=== PATIENT | male | born 1975 | race Caucasian/White ===

== ENCOUNTER 2017-01-30 13:07 | Inpatient (IN) | payer OTHER, BC ==
[~2017-01-30] VITALS: Ht 190.5 cm; Wt 102.0 kg
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
[2017-01-30 13:35] LABS: BASOPHIL # 0.2 K/uL (0.0-0.2); BASOPHIL % 1.3 %; EOSINOPHIL # 0.1 K/uL (0.0-0.5); EOSINOPHIL % 0.8 %; HEMATOCRIT 44.9 % (37.0-53.0); HEMOGLOBIN 15.9 g/dL (12.0-17.0); IMMATURE GRANULOCYTE # 0.6 K/uL (0.0-0.3); IMMATURE GRANULOCYTE % 4.4 %; LYMPHOCYTE # 3.4 K/uL (0.8-4.0); LYMPHOCYTE % 23.8 %; MCH 29.6 pg (27.0-34.0); MCHC 35.4 gm/dL (32.0-36.5); MCV 83.5 fl (83.0-98.0); MONOCYTE # 1.1 K/uL (0.0-1.0); MONOCYTE % 7.7 %; MPV 10.7 fl (9.4-12.4); NEUTROPHIL # (ANC) 8.8 K/uL (1.4-9.0); NRBC % 0 /100WBC (0-0.00); PLATELET COUNT 360 K/uL (150-450); RBC 5.38 M/uL (4.00-6.00); RDW-CV 13.4 % (11.9-14.6); WBC 14.1 K/uL (4.0-11.0)
[2017-01-30 13:48] LABS: INR - (THERAPEUTIC) 1.03 (0.92-1.07); PROTIME 10.8 SECONDS (9.8-11.4); PTT 21 SECONDS (25-32)
[2017-01-30 13:50] LABS: ALBUMIN 3.6 gm/dL (3.5-5.0); BLOOD UREA NITROGEN 15 mg/dL (6-24); CALCIUM 8.5 mg/dL (8.5-10.5); CHLORIDE 107 mMol/L (96-110); CO2 27 mMol/L (22-32); CREATININE 0.9 mg/dL (0.6-1.3); ESTIMATED GFR (MDRD EQUATION) > 60; PHOSPHORUS 2.4 mg/dL (2.5-4.9); SODIUM 144 mMol/L (135-145)
[2017-01-30 13:51] LABS: ANION GAP 12.6 (10.0-19.0); POTASSIUM 2.6 mMol/L (3.7-5.1)
[2017-01-30 17:22] LABS: BASOPHIL # 0.1 K/uL (0.0-0.2); BASOPHIL % 0.4 %; EOSINOPHIL % 0.1 %; HEMATOCRIT 44.4 % (37.0-53.0); HEMOGLOBIN 15.8 g/dL (12.0-17.0); IMMATURE GRANULOCYTE # 0.4 K/uL (0.0-0.3); IMMATURE GRANULOCYTE % 2.3 %; LYMPHOCYTE # 0.8 K/uL (0.8-4.0); LYMPHOCYTE % 4.3 %; MCHC 35.6 gm/dL (32.0-36.5); MCV 84.3 fl (83.0-98.0); MONOCYTE # 1.1 K/uL (0.0-1.0); MPV 10.9 fl (9.4-12.4); NEUTROPHIL # (ANC) 16.4 K/uL (1.4-9.0); NEUTROPHIL % 86.9 %; NRBC % 0 /100WBC (0-0.00); RBC 5.27 M/uL (4.00-6.00); RDW-CV 13.3 % (11.9-14.6)
[2017-01-30 17:24] LABS: PLATELET COUNT 255 K/uL (150-450); WBC 18.9 K/uL (4.0-11.0)
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
[2017-01-30 17:35] LABS: ANION GAP 12.4 (10.0-19.0); BLOOD UREA NITROGEN 13 mg/dL (6-24); CALCIUM 8.4 mg/dL (8.5-10.5); CHLORIDE 105 mMol/L (96-110); CO2 28 mMol/L (22-32); CREATININE 0.9 mg/dL (0.6-1.3); ESTIMATED GFR (MDRD EQUATION) > 60; POTASSIUM 3.4 mMol/L (3.7-5.1); SODIUM 142 mMol/L (135-145)
[2017-01-30] MEDS ORDERED: BENADRYL25 MG PO (18:39)
[2017-01-30] MEDS ORDERED: AMOXICILLIN500 MG PO (18:39)
[2017-01-30] MEDS ORDERED: ADVIL200 MG PO (18:40)
[2017-01-30] MEDS ORDERED: DELTASONE20 MG PO (18:41)
--- NOTE | 2017-01-31 05:33 | NUR ---
Significant Event: Pt oriented x3. Follows commands, spontaneous movments x4. Conversates appropriately. C/o of frontal headache, given Tylenol and Fentanyl for pain control. Emesis x2 tonight, r/t to head movements. Bleeding from R)ear. Acute hearing loss to L)ear, pt states is slightly better. PIV x1. No scott, voids adquately per urinal. Follow up:
[2017-01-31 05:35] LABS: HEMATOCRIT 43.2 % (37.0-53.0); HEMOGLOBIN 15.1 g/dL (12.0-17.0); MCH 29.5 pg (27.0-34.0); MCV 84.5 fl (83.0-98.0); PLATELET COUNT 268 K/uL (150-450); RBC 5.11 M/uL (4.00-6.00); RDW-CV 13.6 % (11.9-14.6); WBC 15.8 K/uL (4.0-11.0)
[2017-01-31 05:48] LABS: ANION GAP 13.3 (10.0-19.0); BLOOD UREA NITROGEN 15 mg/dL (6-24); CALCIUM 8.6 mg/dL (8.5-10.5); CHLORIDE 105 mMol/L (96-110); CO2 27 mMol/L (22-32); CREATININE 0.8 mg/dL (0.6-1.3); ESTIMATED GFR (MDRD EQUATION) > 60; POTASSIUM 3.3 mMol/L (3.7-5.1); SODIUM 142 mMol/L (135-145)
[2017-01-31 06:11] LABS: ABSOLUTE NEUTROPHIL CT (ANC) 14.2 K/uL (1.4-9.0); BANDED NEUTROPHIL # 0.2 K/uL (0.0-0.1); BANDED NEUTROPHILS % 1 %; LYMPHOCYTE # 0.9 K/uL (0.8-4.0); LYMPHOCYTE % 6 %; MONOCYTE # 0.6 K/uL (0.0-1.0); SEGMENTED NEUTROPHIL # 14.1 K/uL (1.4-9.0); SEGMENTED NEUTROPHIL % 89 %
--- NOTE | 2017-01-31 13:15 | NUR ---
Introduced self and role of care management to patient. Patient lives alone in [place], [place]. He syas he has insurance and admission got the information earlier today. His brother is here and lives in [place] too. He plans home when feeling better and able to travel. Will follow.
--- NOTE | 2017-01-31 17:22 | NUR ---
Significant Event: Patient is A&O X3, follows all commands. Pupils are equal and reactive. Equal strength bilateral in upper and lower extremities. Patient gets dizzy and nauseated with head movement. SBP have been 120's-140's, MAP's 90's-low 100's. HR have been 60's-70's. Patient is on RA with o2 sats low to mid 90's. Lung sounds are clear. Patient is a one assist to the chair. Follow up:
[2017-02-01 06:00] LABS: BASOPHIL % 0.2 %; HEMATOCRIT 40.5 % (37.0-53.0); IMMATURE GRANULOCYTE # 0.2 K/uL (0.0-0.3); IMMATURE GRANULOCYTE % 1.1 %; LYMPHOCYTE # 0.7 K/uL (0.8-4.0); LYMPHOCYTE % 3.1 %; MCH 30.2 pg (27.0-34.0); MCHC 34.6 gm/dL (32.0-36.5); MCV 87.3 fl (83.0-98.0); MONOCYTE # 1.4 K/uL (0.0-1.0); MONOCYTE % 6.6 %; MPV 11.4 fl (9.4-12.4); NEUTROPHIL # (ANC) 18.6 K/uL (1.4-9.0); NRBC % 0 /100WBC (0-0.00); PLATELET COUNT 237 K/uL (150-450); RBC 4.64 M/uL (4.00-6.00); RDW-CV 14.1 % (11.9-14.6)
[2017-02-01 06:02] LABS: WBC 20.9 K/uL (4.0-11.0)
[2017-02-01 06:07] LABS: ANION GAP 12.3 (10.0-19.0); BLOOD UREA NITROGEN 20 mg/dL (6-24); CALCIUM 8.5 mg/dL (8.5-10.5); CHLORIDE 107 mMol/L (96-110); CO2 28 mMol/L (22-32); CREATININE 0.8 mg/dL (0.6-1.3); ESTIMATED GFR (MDRD EQUATION) > 60; POTASSIUM 3.3 mMol/L (3.7-5.1); SODIUM 144 mMol/L (135-145)
--- NOTE | 2017-02-01 06:39 | NUR ---
Significant Event: PATIENT ALERT/ORIENTED. COMPLAINT OF FRONTAL HEADACHE, SOME RELIEF NOTED WITH PRN FENTANYL AND TYLENOL. COMPLAINT OF INSOMNIA, BENADRYL GIVEN. AFEBRILE. NPO EXCEPT FOR MINIMAL SIPS. VOIDING PER URINAL. PIV TO RIGHT POST FOREARM NS AT 100ML/HR. SHOWERED THIS SHIFT. Follow up:TRANSFER
--- NOTE | 2017-02-01 14:38 | NUR ---
Significant Event: Alert and oriented x3. Pain to head and stiffness, Fentanyl given. Nausea zofran given. PT/OT consulted, ambulated in [place]za. Voids per urinal/bathroom. IV to R) forearm infusing fluids at 75 ml/hr. Regular diet. NTU status. Up to chair today. Follow up: transfer to NTU.
--- NOTE | 2017-02-02 02:21 | NUR ---
Significant Event: Patient transferred from ICU to NTU at 2130. Patient is alert/oriented x 3. Denies N/T. Moves all extremities spontaneously and to command with equal strength throughout. Lungs clear and dim on room air. VSS. Pain to lower back and frontal lobe. Fentanyl and Tylenol last given at 0015, relief noted. KPAD to back. IV to right forearm saline locked running D5 1/2 NS at 75 ml/hr. Follow up: Going home today?
[2017-02-02 04:57] LABS: BASOPHIL # 0.1 K/uL (0.0-0.2); BASOPHIL % 0.3 %; EOSINOPHIL % 0.2 %; HEMATOCRIT 37.2 % (37.0-53.0); HEMOGLOBIN 12.7 g/dL (12.0-17.0); IMMATURE GRANULOCYTE # 0.2 K/uL (0.0-0.3); IMMATURE GRANULOCYTE % 0.9 %; LYMPHOCYTE # 0.7 K/uL (0.8-4.0); LYMPHOCYTE % 4.3 %; MCH 29.4 pg (27.0-34.0); MCHC 34.1 gm/dL (32.0-36.5); MCV 86.1 fl (83.0-98.0); MONOCYTE # 1.2 K/uL (0.0-1.0); MONOCYTE % 7.4 %; MPV 10.9 fl (9.4-12.4); NEUTROPHIL # (ANC) 13.9 K/uL (1.4-9.0); NEUTROPHIL % 86.9 %; NRBC % 0 /100WBC (0-0.00); RBC 4.32 M/uL (4.00-6.00); RDW-CV 14.1 % (11.9-14.6)
[2017-02-02 05:02] LABS: PLATELET COUNT 184 K/uL (150-450); WBC 16.1 K/uL (4.0-11.0)
[2017-02-02 05:16] LABS: ANION GAP 9.5 (10.0-19.0); BLOOD UREA NITROGEN 16 mg/dL (6-24); CALCIUM 8.4 mg/dL (8.5-10.5); CHLORIDE 106 mMol/L (96-110); CO2 28 mMol/L (22-32); CREATININE 0.7 mg/dL (0.6-1.3); ESTIMATED GFR (MDRD EQUATION) > 60; POTASSIUM 3.5 mMol/L (3.7-5.1); SODIUM 140 mMol/L (135-145)
[2017-02-02] MEDS ORDERED: ROXICODONE 5MG (5 MG PO (10:30)
[2017-02-02] MEDS ORDERED: ZOFRAN4 MG PO (10:31)
[2017-02-02] MEDS ORDERED: MECLIZINE HCL25 M1 PO (10:32)
--- NOTE | 2017-02-02 17:17 | NUR ---
PT DISMISSED WITH SISTER. IV REMOVED PRIOR TO DISCHARGE INSTRUCTIONS GIVEN. PT AND SISTER STATE THEY WILL CALL MD THAT THEY ARE SUPPOSE TO FOLLOW UP WITH HERE AND LET THEM KNOW THEY WILL SEE SOMEONE IN THE AREA HE IS FROM. DR STREETER AWARE HE IS GOING BACK TO [place].
== END 2017-02-02 16:45 | disposition disaster alternative care site (69) | DRG 83 ==
LOC: GACC 13:07 → EDBD 14:50 → GNTU 14:50 → GICU 14:50 → GNTU 02-01 22:17
PROVIDERS: Family Medicine; ADMIT Surgery
DX: S06.5X9A Traumatic subdural hemorrhage with loss of consciousness of unspecified duration, initial encounter (principal); M48.54XA Collapsed vertebra, not elsewhere classified, thoracic region, initial encounter for fracture; S02.102A Fracture of base of skull, left side, initial encounter for closed fracture; S02.119A Unspecified fracture of occiput, initial encounter for closed fracture; S02.19XA Other fracture of base of skull, initial encounter for closed fracture; S02.101A Fracture of base of skull, right side, initial encounter for closed fracture; H91.92 Unspecified hearing loss, left ear; R29.810 Facial weakness; R51 Headache; R11.0 Nausea; F17.220 Nicotine dependence, chewing tobacco, uncomplicated; H61.22 Impacted cerumen, left ear; R05 Cough; H73.891 Other specified disorders of tympanic membrane, right ear; R41.3 Other amnesia; V59.40XA Driver of pick-up truck or van injured in collision with unspecified motor vehicles in traffic accident, initial encounter; Y92.410 Unspecified street and highway as the place of occurrence of the external cause
CPT/HCPCS: G0390; G0480; J2405; J2550; J3010; J3480; J7030; J7050; Q9967

== ENCOUNTER → 2017-01-30 | Outpatient (CLI) | payer BC, OTHER ==
[~2017-01-30] MED LIST: ADVIL200 MG PO; AMOXICILLIN500 MG PO; BENADRYL25 MG PO; DELTASONE20 MG PO; MECLIZINE HCL25 M1 PO; ROXICODONE 5MG (5 MG PO; ZOFRAN4 MG PO
== END | disposition disaster alternative care site (69) ==
LOC: GAMB 12:33
DX: S09.90XA Unspecified injury of head, initial encounter (principal); R04.0 Epistaxis; R51 Headache; R68.84 Jaw pain; X58.XXXA Exposure to other specified factors, initial encounter
CPT/HCPCS: A0422; A0425; A0427; J2405